=== PATIENT | female | born 1980 | race Caucasian/White ===

== ENCOUNTER → 2020-04-11 18:50 | Observation (INO) ==
[2020-04-11 18:10] LABS: Bacteria,Urine Few per hpf (None-Few); Bilirubin,Urine Negative (Negative); Blood,Urine Negative (Negative); Clarity,Urine Turbid (Clear); Color,Urine Light-Yellow (Yellow); Glucose,Urine (UA) Normal (Normal); Ketones,Urine Negative (Negative); Leukocyte Esterase,Urine Small (Negative); Mucus,Urine Few per lpf (None-Few); Nitrite,Urine Negative (Negative); Protein,Urine Trace mg/dL (Neg-Trace); RBC,Urine 0-3 per hpf (0-3); Specific Gravity,Urine 1.026 (1.010-1.025); Squamous Epithelial Cell,Urine Many per hpf (None-Few); Urobilinogen,Urine Normal (Normal); WBC,Urine 0-3 per hpf (0-3)
== END | disposition home or self-care (01) ==
LOC: 1NENULAB
PROVIDERS: ADMIT Advanced Practice Midwife; ATTEND Advanced Practice Midwife

== ENCOUNTER → 2020-07-30 13:10 | Observation (INO) | END | disposition home or self-care (01) | LOC: 1NENULAB | PROVIDERS: ADMIT Obstetrics & Gynecology; ATTEND Obstetrics & Gynecology ==

== ENCOUNTER 2020-08-23 06:00 | Inpatient (IN) ==
[2020-08-23] MEDS ORDERED: Naloxone 0.4 MG/ML INJ IVP PRN (06:28)
[2020-08-23] MEDS ORDERED: Ondansetron 4 MG/2 ML VIAL IVP PRN (06:28)
[2020-08-23] MEDS ORDERED: Lidocaine 1% 20 ML MDV INFILT PRN (06:28)
[2020-08-23] MEDS ORDERED: *HR* Nalbuphine 10 MG/ML AMPUL IV PRN (06:28)
[2020-08-23] MEDS ORDERED: Metoclopramide 10 MG/2 ML VIAL IVP PRN (06:28)
[2020-08-23] MEDS ORDERED: Famotidine 20 MG/2 ML VIAL IVP PRN (06:28)
[2020-08-23] MEDS ORDERED: Oxytocin 20 units/ LR 1000 mL 20 UNIT/1,000 ML BAG IVC SCH (06:30)
[2020-08-23 07:17] LABS: Basophils % 0.3 %; Eosinophils # 0.1 K/mcL (0.0-0.6); Eosinophils % 0.9 %; Hematocrit 40.4 % (35.3-44.9); Hemoglobin 13.1 g/dL (11.5-15.4); Immature Granulocytes % 1.1 % (0-4); Lymphocytes # 2.2 K/mcL (0.6-4.6); Lymphocytes % 19.8 %; Mean Corpuscular HGB Conc 32.4 g/dL (31.6-35.5); Mean Corpuscular Hemoglobin 29.4 pg (28.0-33.3); Mean Corpuscular Volume 90.6 fL (83.0-100.0); Mean Platelet Volume 11.1 fL (9.4-12.4); Monocytes # 0.8 K/mcL (0.0-1.3); Monocytes % 7.1 %; Neutrophils # 7.8 K/mcL (1.6-8.9); Platelet Count 160 K/mcL (140-400); Red Blood Count 4.46 M/mcL (3.82-4.97); Red Cell Distribution Width 16.5 % (11.5-14.5); Segmented Neutrophils % 70.8 %; White Blood Count 11.1 K/mcL (4.3-11.1)
[2020-08-23] MEDS: Ringers Solution, Lactated 1,000 ML IVC SCH ×2 (07:44→15:23)
[2020-08-23] MEDS ORDERED: Ropivacaine/PF 0.2% 20 ML VIAL EP ONE (08:24)
[2020-08-23] MEDS ORDERED: EPHEDrine 50 MG/ML VIAL IVP PRN (08:24)
[2020-08-23] MEDS ORDERED: *HR* FentaNYL (PF) 100 MCG/2 ML VIAL EP ONE (08:24)
[2020-08-23] MEDS ORDERED: Epidural Premix (fent/bupiv) 110 ML EP SCH (08:30)
[2020-08-23 11:58] LABS: Amphetamine Screen,Urine Negative ng/mL (Cutoff=1000); Barbiturate Screen,Urine Negative ng/mL (Cutoff=200); Benzodiazepines Screen,Urine Negative ng/mL (Cutoff=200); Cannabinoid Screen,Urine Negative ng/mL (Cutoff = 50); Cocaine Screen,Urine Negative ng/mL (Cutoff= 300); Opiate Screen,Urine Negative ng/mL (Cutoff=300); Phencyclidine Screen,Urine Negative ng/mL (Cutoff=25)
[2020-08-23] MEDS ORDERED: Bupivacaine-MPF 0.25% 10 ML VIAL ONE (21:24)
[2020-08-24] MEDS ORDERED: Lanolin 7 G OINT...G. TP PRN (03:22)
[2020-08-24] MEDS ORDERED: Oxytocin 20 units/ LR 1000 mL 20 UNIT/1,000 ML BAG IVC SCH (03:22)
[2020-08-24] MEDS ORDERED: Acetaminophen 325 MG TABLET PO PRN (03:22)
[2020-08-24] MEDS ORDERED: Oxytocin 20 units/ LR 1000 mL 20 UNIT/1,000 ML BAG IVC ONE (03:22)
[2020-08-24] MEDS: Prenatal Vit/FA 1 EACH TABLET PO SCH (08:29)
[2020-08-24] MEDS ORDERED: Methylergonovine 0.2 MG/ML AMPUL IM ONE (10:03)
[2020-08-24] MEDS: Ibuprofen 600 MG TABLET PO PRN (16:35)
[2020-08-25] MEDS: Ibuprofen 600 MG TABLET PO PRN ×2 (03:55→11:20)
[2020-08-25 05:37] LABS: Basophils % 0.3 %; Eosinophils # 0.1 K/mcL (0.0-0.6); Eosinophils % 0.9 %; Hematocrit 32.2 % (35.3-44.9); Immature Granulocytes % 0.8 % (0-4); Lymphocytes # 2.7 K/mcL (0.6-4.6); Lymphocytes % 21.4 %; Mean Corpuscular HGB Conc 32.9 g/dL (31.6-35.5); Mean Corpuscular Hemoglobin 29.9 pg (28.0-33.3); Monocytes # 0.9 K/mcL (0.0-1.3); Monocytes % 7.1 %; Neutrophils # 8.8 K/mcL (1.6-8.9); Platelet Count 164 K/mcL (140-400); Red Blood Count 3.54 M/mcL (3.82-4.97); Segmented Neutrophils % 69.5 %; White Blood Count 12.6 K/mcL (4.3-11.1)
[2020-08-25 05:43] LABS: Hemoglobin 10.6 g/dL (11.5-15.4)
[2020-08-25 06:08] LABS: Platelet Estimate Normal (Normal)
[2020-08-25] MEDS ORDERED: Famotidine 20 MG/2 ML VIAL IVP ONE (08:03)
[2020-08-25] MEDS ORDERED: Metoclopramide 10 MG/2 ML VIAL IVP ONE (08:03)
[2020-08-25] MEDS: Prenatal Vit/FA 1 EACH TABLET PO SCH (08:03)
[2020-08-25] MEDS ORDERED: Ringers Solution, Lactated 1,000 ML IVC SCH (08:15)
[2020-08-25] MEDS ORDERED: Ringers Solution, Lactated 1,000 ML ONE (08:17)
[2020-08-25] MEDS ORDERED: *HR* FentaNYL (PF) 100 MCG/2 ML VIAL ONE (08:27)
[2020-08-25] MEDS ORDERED: *HR* Succinylcholine 200 MG/10 ML VIAL IVP ONE (08:27)
[2020-08-25] MEDS ORDERED: *HR* Midazolam HCl 2 MG/2 ML VIAL ONE (08:27)
[2020-08-25] MEDS ORDERED: Ondansetron 4 MG/2 ML VIAL ONE (08:27)
[2020-08-25] MEDS ORDERED: *HR* Propofol 200 MG/20 ML VIAL IVP ONE (08:28)
[2020-08-25] MEDS ORDERED: Lidocaine -MPF 2% 5 ML VIAL ONE (08:29)
[2020-08-25] MEDS ORDERED: CeFAZolin 2,000 MG/50 ML BAG IVPB ONE (08:31)
[2020-08-25] MEDS ORDERED: Lidocaine -MPF 1% 5 ML AMPUL ONE (08:35)
[2020-08-25] MEDS ORDERED: Acetaminophen IV 1,000 MG/100 ML BAG IVPB ONE (09:33)
[2020-08-25] MEDS ORDERED: *HR* OxyCODONE/APAP 5/325 TABLET PO PRN (10:19)
[2020-08-25 13:27] VITALS: BP 130/82
== END 2020-08-25 15:15 | disposition home or self-care (01) | DRG 797 ==
LOC: 1NENULAB 06:08 → 1NENUOBS 08-24 04:43
PROVIDERS: ADMIT Obstetrics & Gynecology; ATTEND Obstetrics & Gynecology